=== PATIENT | female | born 1960 | race Caucasian/White ===

== ENCOUNTER 2025-05-12 13:29 | Emergency (ER) | payer SELFPAY ==
[2025-05-12 13:35] VITALS: BP 165/106
--- NOTE | 2025-05-12 15:34 | ED.GENMED ---
History of Present Illness
General
Chief Complaint: Musculo-Skeletal Complaint
Time Seen by Provider: 05/12/25 15:34
History of Present Illness
History of Present Illness:
FOCUSED PAST MEDICAL HISTORY
- Seizure disorder
REVIEW OF OLD RECORDS
- No old records available for review in [facility]
Note:
CHIEF COMPLAINT(S)
Left wrist pain following a fall.
HISTORY OF PRESENT ILLNESS
The patient is a 64-year-old male who presented with a left wrist injury sustained from a fall while walking on a hill at his sons house. The ground was icy, and the patient slipped on frozen ground, landing with his left hand outstretched on a tree
root. He felt an immediate 'pop' in his wrist. He reports pain but declines medication at this time, preferring to manage with ibuprofen (Advil) at home. There are no other injuries or pain in the chest, abdomen, head, or legs, although the patient
notes a possible bruise on the leg.
ADDITIONAL HISTORY OBTAINED FROM SOURCES OTHER THAN THE PATIENT
No source other than the patient provided additional history.
EXTERNAL RECORDS REVIEWED
The patients urinalysis shows one plus ketonuria with no sign of infection. However, there is a noted worsening of renal function.
SOCIAL DETERMINANTS AFFECTING HEALTH
The patient mentions they do not currently have insurance, which could affect their access to follow-up care and financial considerations for treatment.
PHYSICAL EXAM
General: Alert, no acute distress.
Skin: Warm, dry.
Head: Normocephalic, atraumatic. No evidence of craniofacial trauma
Neck: Supple, trachea midline. No midline C-spine tenderness
Eyes, Ears, Nose, Mouth, and Throat: Oral mucosa moist.
Cardiovascular: Normal peripheral perfusion, No edema.
Respiratory: Respirations are non-labored.
Gastrointestinal: Abdomen nondistended.
Back: Normal range of motion, Normal alignment.
Musculoskeletal: There is only minimal deformity noted with no significant palpable displacement but does have tenderness at the distal left radius along with decreased active range of motion into flexion and extension due to pain
Neurological: Alert and oriented to person, place, time, and situation, No focal neurological deficit observed.
Psychiatric: Cooperative, appropriate mood & affect.
PLAN
1. Splinting: The patient will be provided with a volar splint for immobilization of the left wrist.
2. Pain Management: Advise the use of ibuprofen at home; prescribe Percocet (oxycodone-acetaminophen) to be picked up at [facility] on [facility].
3. Follow-Up: The patient will attempt to secure a follow-up appointment with an orthopedic provider in [place] upon return.
4. Influenza: Diagnosed with influenza, managed symptomatically.
5. Renal Function: Due to noted ketonuria and worsening renal function, continue monitoring with IV fluids as indicated.
6. Financial Considerations: Encourage the patient to seek insurance coverage options for continued care.
DIFFERENTIAL DIAGNOSIS
The Differential Diagnosis includes, in no particular order and is not limited to:
1. Distal radius fracture
2. Wrist sprain
3. Closed forearm fracture
4. Scaphoid fracture
5. Carpal bone fracture
6. Wrist dislocation
7. Ligamentous injury
8. Hand fracture
9. Contusion
10. Osteoporosis-related fracture
Disposition:
SUMMARY OF ENCOUNTER
The patient, a 64-year-old male, presented to the emergency department with left wrist pain following a fall on icy ground, resulting in a left distal radius fracture with some angulation. Although there is angulation, there is no clinical need for
reduction in the emergency department. The patient prefers to manage pain with hgja-hlk-kuqasye medications and has been advised on additional options for pain management.
DISPOSITION
The patient will be discharged to follow up with an orthopedic provider once he returns to [place]. A local provider contact was also given for follow-up care.
ASSESSMENT
The assessment indicates a distal radius fracture of the left wrist with some angulation.
PLAN
- Immobilization with a volar splint for the left wrist.
- Prescribe a narcotic analgesic for pain management.
- Arrange follow-up with an orthopedic provider in [place] or with the local contact provided.
INDEPENDENT REVIEW OF LABS AND INTERPRETATION OF TESTS
My independent review of lab results indicates one plus ketonuria and a worsening of renal function, which needs monitoring.
PATIENT EDUCATION AND COUNSELING
The patient was educated about the nature of the fracture, the importance of immobilization, and the rationale for follow-up care with an retail presentation specialist. The patient was also provided advice on managing pain with igeq-udj-rdlexmy medications
and the use of prescribed analgesics as needed.
FOLLOW-UP INSTRUCTIONS
The patient was instructed to schedule follow-up appointments with an orthopedic provider in [place] upon return or with the local contact provided for further evaluation and management.
MEDICATION RECONCILIATION
- Prescribed narcotic analgesic (specifics not provided in the conversation).
MEDICAL DECISION MAKING
- Complexity of Data Reviewed: Chronic conditions affecting care: none mentioned. Differential diagnosis includes distal radius fracture, wrist sprain, closed forearm fracture, scaphoid fracture, carpal bone fracture, wrist dislocation, ligamentous
injury, hand fracture, contusion, osteoporosis-related fracture.
- Data:
Category 1: Reviewed patient�s past records indicating one plus ketonuria and worsening renal function.
Category 3: Provided information to the patient about local follow-up care options and managing pain, considering social determinants affecting health.
- Risk:
Prescription medication was prescribed for pain management. Care significantly affected by social determinants, as the patient does not currently have insurance which can impact access to follow-up care.
DIAGNOSIS
- Distal radius fracture, left wrist (ICD-10: S52.502A).
RADIOLOGY
- X-ray shows somewhat angulated dorsally distal radius fracture displaced
Phy Exam
Physical Exam
Physical Exam:
See HPI
Course
Orders/Labs/Results
Orders:
Orders
05/12/25 13:31
Forearm, Left 2 View [CR Forearm - Left 2 View] Urgent
Comment:
Reason For Exam: fall
Wrist, Left 3 Views CR [CR Wrist - Left Min 3 Views] Urgent
Comment:
Reason For Exam: fall
05/12/25 16:08
Volar Left-Treatment ONCE
Vital Signs
Initial and Last Documented VS:
Initial Vital Signs
Temp Pulse Resp BP Pulse Ox
37.1 C 77 16 165/106 99
05/12/25 13:35 05/12/25 13:35 05/12/25 13:35 05/12/25 13:35 05/12/25 13:35
Last Documented Vital Signs
Temp Pulse Resp BP Pulse Ox
37.1 C 77 16 165/106 99
05/12/25 13:35 05/12/25 13:35 05/12/25 13:35 05/12/25 13:35 05/12/25 15:35
*Pulse Oximetry
SaO2: 99
Oxygen Mode of Delivery: Room air
Patient hypoxic: no
*Critical Care Note
Total Time (30-74mins, 75-104mins- exclusive of procedures): Not Applicable
ED Attending Note
-
Portions of this chart may have been created with voice recognition software.� Occasional wrong word or��sound alike� substitutions may have occurred due to the inherent limitations of voice recognition software.
Discharge Plan
Departure
Patient Disposition: Home (Routine Discharge)
Date of Disposition: 05/12/25
Time of Disposition: 16:09
Patient with high blood pressure during this ER visit?: Yes
Discharge Problem:
Distal radius fracture, left
Instructions: Wrist Fracture (DC), BLOOD PRESSURE
Prescriptions:
New
oxycodone-acetaminophen [Percocet] 5-325 mg tablet
1 - 2 tab PO Q8H PRN (Reason: Pain) Qty: 14 0RF
Referrals:
NONE,* [Family Provider, Internal Medicine]
Hermann Hopper MD [Active, Orthopedics]
Activity Restrictions/Additional Instructions:
I recommend that you follow-up with orthopedics. I did give the contact information for a local orthopedist around here, Dr. Hopper. I recommend 3-4 cwpu-ark-ludjzwg ibuprofen (Motrin) every 8 hours with food for a few days. Return here if
worse.
Interventions
Interventions:
*General Assessment Last Done: 05/12/25 13:35
*Neglect/Abuse Screening Last Done: 05/12/25 13:35
*Risk Screen - Suicide (C-SSRS) Last Done: 05/12/25 13:35
Discharge Date and Time
Print Language: [id number]
== END 2025-05-12 16:34 | disposition home or self-care (01) ==
LOC: EMR 13:29
PROVIDERS: EMERGENCY PHYSICIAN Emergency Medicine
DX: S52.502A Unspecified fracture of the lower end of left radius, initial encounter for closed fracture (principal); W00.0XXA Fall on same level due to ice and snow, initial encounter; Y93.01 Activity, walking, marching and hiking; R82.4 Acetonuria; R03.0 Elevated blood-pressure reading, without diagnosis of hypertension; Z59.71 Insufficient health insurance coverage; Z88.1 Allergy status to other antibiotic agents; Z88.3 Allergy status to other anti-infective agents; Z91.0120 Allergy to eggs, unspecified; Z88.0 Allergy status to penicillin; Z91.018 Allergy to other foods
CPT/HCPCS: 99283; 29125; 73090; 73110